=== PATIENT | female | born 1930 | race Caucasian/White ===

== ENCOUNTER 2019-05-14 01:56 | Emergency (ER) | payer MEDICARE ==
[~2019-05-14] VITALS: Ht 167.6 cm; Wt 72.6 kg
[2019-05-14 01:59] VITALS: Ht 167.6 cm; Wt 72.6 kg
[2019-05-14 02:30] LABS: microscopic required? NO
[2019-05-14 02:38] LABS: urine erythrocyte NEGATIVE (NEGATIVE)
[2019-05-14] MEDS ORDERED: ASPIR 8181 MG PO (03:02)
[2019-05-14] MEDS ORDERED: LEVOTHYROXINE0.05 M2 PO (03:03)
[2019-05-14] MEDS ORDERED: NAMENDA10 M2 PO (03:03)
[2019-05-14] MEDS ORDERED: SIMVASTATIN40 M1 PO (03:04)
[2019-05-14] MEDS ORDERED: MULTIVITAMIN1 SGL PO (03:04)
[2019-05-14] MEDS ORDERED: QUALITY CHOICE A2 MG PO (03:05)
[2019-05-14] MEDS ORDERED: TYLOPHEN500 MG PO (03:05)
[2019-05-14] MEDS ORDERED: GERI-LANTA355 ML PO (03:06)
[2019-05-14] MEDS ORDERED: MILK OF MA400 MG/5 M PO (03:06)
[2019-05-14 03:35] LABS: CALCIUM 8.5 mg/dL (8.5-10.1); CARBON DIOXIDE 26.4 mmol/L (21-32); CHLORIDE SERUM 107 mmol/L (98-107); CREATININE SERUM 0.8 mg/dL (0.6-1.0); GLUCOSE SERUM 98 mg/dL (74-106); POTASSIUM SERUM 3.9 mmol/L (3.5-5.1); SODIUM SERUM 143 mmol/L (136-145)
[2019-05-14 03:40] LABS: ALBUMIN 3.3 g/dL (3.4-5.0); ALKALINE PHOSPHATASE 80 U/L (46-116); ALT/SGPT 21 U/L (14-59); AST/SGOT 22 U/L (15-37); BILIRUBIN TOTAL 0.94 mg/dL (0.20-1.00); TOTAL PROTEIN, SERUM 6.2 g/dL (6.4-8.2)
[2019-05-14 04:03] LABS: BASOPHIL % 0.9 % (0-2); PLATELET COUNT 236 x10^3mcL (130-400)
[2019-05-14 04:05] LABS: RED CELL DISTRIBUTION WIDTH 16.1 % (11.5-14.5)
[2019-05-14 06:24] VITALS: BP 167/92
== END 2019-05-14 06:24 | disposition home or self-care (01) ==
LOC: ED 01:56
PROVIDERS: Emergency Medicine
DX: S00.03XA Contusion of scalp, initial encounter (principal); W18.39XA Other fall on same level, initial encounter; Y93.89 Activity, other specified; Y92.89 Other specified places as the place of occurrence of the external cause; Y99.8 Other external cause status
CPT/HCPCS: 36415